=== PATIENT | female | born 1990 | race Caucasian/White ===

== ENCOUNTER → 2018-10-01 | Outpatient (CLI) | END | disposition home or self-care (01) ==

== ENCOUNTER → 2018-10-11 | Outpatient (CLI) | END | disposition home or self-care (01) ==

== ENCOUNTER 2019-02-16 10:24 | Inpatient (IN) | payer OTHER ==
[~2019-02-16] VITALS: Ht 170.2 cm; Wt 131.0 kg
[~2019-02-16 10:24] MED LIST: CEPH500C PO; FLUT1BLS INH; MONT10TA24 PO; SULF-182 PO
[2019-02-16 11:19] VITALS: BP 131/60; PULSE 121; RESP 18
--- NOTE | 2019-02-16 12:49 | HP ---
Date/Time of Note Date/Time of Note DATE: 02/16/19 TIME: 12:47 Assessment/Plan VTE Prophylaxis Pharmacological prophylaxis: LMWH Lines/Catheters IV Catheter Type (from Nrs): Peripheral IV Urinary Cath still in place: No Assessment/Plan Hospital Course 1. Acute respiratory distress secondary to pneumonia and/or asthma exacerbation Chest x-ray at outside hospital showed a right-sided pneumonia IV antibiotics with Rocephin and azithromycin Continue home Breo Albuterol as needed 2. Morbid obesity Lifestyle changes to be advised 3. Asthma Meds as above Prophylaxis: Lovenox HPI/ROS Admit Date/Time Admit Date/Time Feb 16, 2019 at 10:40 Hx of Present Illness Patient is a 28-year-old female with history of asthma, morbid obesity and lower extremity cellulitis. Patient presents to an outside hospital with reports of several weeks of shortness of breath as well as loss of voice. Chest x-ray at outside facility showed right-sided pneumonia, patient was transferred due to capitation. Patient has no other complaints at this time, patient does report coughing and shortness of breath. ROS Constitutional: no complaints, improved Eyes: no complaints ENT: no complaints Respiratory: cough, shortness of breath Cardiovascular: no complaints Gastrointestinal: no complaints Genitourinary: no complaints Musculoskeletal: no complaints Skin: no complaints Neurologic: no complaints Endocrine: no complaints Lymphatic: no complaints Psychological: no complaints, nl mood/affect Immunologic: no complaints PMH/Family/Social Past Medical History Asthma, obesity, lower extremely cellulitis Medications Current Medications IV Flush (NS 3 ml) 3 ml PER PROTOCOL IV ; Start 02/16/19 at 13:00; Status UNV Ondansetron HCl (Zofran Inj) 4 mg Q6H PRN IV NAUSEA/VOMITING; Start 02/16/19 at 13:00; Status UNV Acetaminophen (Tylenol Tab) 650 mg Q6H PRN PO .PAIN 1-3 OR TEMP; Start 02/16/19 at 13:00; Status UNV Acetaminophen/ Hydrocodone Bitart ([place] (5/325)) 1 tab Q6H PRN PO .MOD PAIN 4- 6; Start 02/16/19 at 13:00; Status UNV Morphine Sulfate (morphine) 2 mg Q4H PRN IV .SEVERE PAIN 7-10; Start 02/16/19 at 13:00; Status UNV Docusate Sodium (Colace) 100 mg Q12H PRN PO .CONSTIPATION; Start 02/16/19 at 13:00; Status UNV Zolpidem Tartrate (Ambien) 5 mg QHS PRN PO .INSOMNIA; Start 02/16/19 at 13:00; Status UNV Enoxaparin Sodium (Lovenox) 40 mg DAILY SC ; Start 02/17/19 at 09:00; Status UNV Ceftriaxone Sodium 50 ml @ 100 mls/hr Q24H IVPB ; Start 02/16/19 at 13:00; Status UNV Azithromycin 250 ml @ 250 mls/hr Q24H IVPB ; Start 02/16/19 at 13:00; Status U NV Fluticasone/ Vilanterol (Breo Ellipta 200-25 Mcg Inh) 1 inh DAILY INH ; Start 02/16/19 at 13:00; Status UNV Montelukast Sodium (Singulair) 10 mg HS PO ; Start 02/16/19 at 21:00; Status UNV Albuterol (Proventil 0.083% (Neb)) 2.5 mg Q4H RESP THERAPY PRN HHN SHORTNESS OF BREATH; Start 02/16/19 at 13:00; Status UNV Coded Allergies: latex (Verified Allergy, Intermediate, hives, 02/16/19) nut - unspecified (Verified Allergy, Mild, hives, 02/16/19) pollen extracts (Verified Allergy, Mild, wattery eyes, sneezing, coughing, 02/16/19) apple (Verified Allergy, Unknown, swelling, 02/16/19) apricot (Verified Allergy, Unknown, swelling, 02/16/19) peach (Verified Allergy, Unknown, chilles, 02/16/19) Past Surgical History Past Surgical Hx: no surgical history, noncontributory Family History Significant Family History: no pertinent family hx Social History Alcohol Use: rarely Smoking Status: Never smoker Drug Use: none Exam/Review of Systems Vital Signs Vitals Vital Signs Date Temp Pulse Resp B/P (MAP) Pulse Ox O2 O2 Flow FiO2 Time Delivery Rate 02/16/19 98.4 121 18 131/60 98 11:19 (83) Exam Constitutional: alert, oriented Respiratory: clear to auscultation Cardiovascular: regular rate and rhythm Gastrointestinal: soft; No distended Musculoskeletal: nl extremities to inspection BIENVENIDO CASTELLANOS Feb 16, 2019 12:49
[2019-02-16] MEDS ORDERED: morphine 2 MG INJ IV PRN (13:00)
[2019-02-16] MEDS: CEFTRIAXONE 1 GM/50 ML (PMX) 50 ML IVPB SCH (13:00)
[2019-02-16] MEDS ORDERED: ALBUTEROL 0.083% (NEB) 2.5 MG/3 ML AMP HHN PRN (13:00)
[2019-02-16] MEDS ORDERED: ONDANSETRON 4 MG INJ IV PRN (13:00)
[2019-02-16] MEDS ORDERED: HYDROCODONE/APAP (5/325) TAB PO PRN (13:00)
[2019-02-16] MEDS ORDERED: ZOLPIDEM 5 MG TAB PO PRN (13:00)
[2019-02-16] MEDS ORDERED: DOCUSATE SODIUM 100 MG CAP PO PRN (13:00)
[2019-02-16] MEDS ORDERED: ACETAMINOPHEN 325 MG TAB PO PRN (13:00)
[2019-02-16] MEDS ORDERED: NACL 0.9% 3 ML SYG IV SCH (13:00)
[2019-02-16 13:52] VITALS: BP 102/65; PULSE 108; RESP 18
[2019-02-16] MEDS: AZITHROMYCIN 500MG/NS (PMX) 250 ML IVPB SCH (14:00)
[2019-02-16] MEDS: FLUTICASONE/VILANTEROL 200-25 INH DEVICE INH SCH (16:25)
[2019-02-16 19:11] VITALS: Ht 170.2 cm; Wt 131.0 kg
[2019-02-16 19:51] VITALS: BP 114/61; PULSE 98; RESP 19
[2019-02-16] MEDS ORDERED: MONTELUKAST 10 MG TAB PO SCH (21:00)
[2019-02-17 02:00] VITALS: BP 113/56; PULSE 85; RESP 19
[2019-02-17 08:34] VITALS: BP 126/76; PULSE 91; RESP 18
[2019-02-17] MEDS: FLUTICASONE/VILANTEROL 200-25 INH DEVICE INH SCH (08:36)
[2019-02-17] MEDS ORDERED: ENOXAPARIN 40 MG/0.4 ML SYG SC SCH (09:00)
[2019-02-17] MEDS: CEFTRIAXONE 1 GM/50 ML (PMX) 50 ML IVPB SCH (12:29)
[2019-02-17] MEDS: AZITHROMYCIN 500MG/NS (PMX) 250 ML IVPB SCH (13:24)
[2019-02-17 14:02] VITALS: BP 114/73; PULSE 90; RESP 18
[2019-02-17] MEDS ORDERED: AZIT500T2 PO (16:42)
[2019-02-17] MEDS ORDERED: PROM6.2515 PO (16:42)
--- NOTE | 2019-02-17 16:42 | PDOCDIS ---
Discharge Instructions CONDITION [id number] Patient Condition: Tetgo9d Good HOME CARE INSTRUCTIONS: [id number] Diet Instructions: Agzii2g Reduced Calorie ACTIVITY: [id number] Activity Restrictions: Ulzso2r No Restrictions FOLLOW UP/APPOINTMENTS Follow-up Plan FOLLOW UP WITH YOUR PRIMARY CARE PHYSICIAN IN 1-2 WEEKS BIENVENIDO CASTELLANOS Feb 17, 2019 16:42
--- NOTE | 2019-02-17 16:44 | DS ---
Date/Time of Note Date/Time of Note DATE: 02/17/19 TIME: 16:43 Discharge Summary Admission/Discharge Info Admit Date/Time Feb 16, 2019 at 10:40 Discharge Date/Time February 17, 2019 Discharge Diagnosis 1. Acute respiratory distress secondary to pneumonia and/or asthma exacerbation-resolved Chest x-ray at outside hospital showed a right-sided pneumonia Status post IV antibiotics with Rocephin and azithromycin DC with Z-Benedicto and Phenergan with codeine Continue home Breo 2. Morbid obesity Lifestyle changes 3. Asthma Meds as above Patient Condition: Good Hospital Course Patient is a 28-year-old female with history of asthma, morbid obesity and lower extremity cellulitis. Patient presents to an outside hospital with reports of several weeks of shortness of breath as well as loss of voice. Chest x-ray at outside facility showed right-sided pneumonia, patient was transferred due to capitation. Patient received IV antibiotics and symptoms did improve, patient was stable for DC with oral antibiotics and cough syrup. On the day of discharge patient's vitals, labs and physical exam are stable. Home Meds Active Scripts Promethazine Hcl* (Promethazine Hcl* Syrup) 6.25 Mg/5 Ml Syrup, 6.25 MG PO Q6H PRN for COUGH, #1 BOTTLE Prov:BIENVENIDO CASTELLANOS 02/17/19 Azithromycin* (Zithromax* Tri-Benedicto) 500 Mg Tablet, 500 MG PO DAILY, #1 PACKET Prov:BIENVENIDO CASTELLANOS 02/17/19 Montelukast Sodium* (Montelukast Sodium*) 10 Mg Tablet, 10 MG PO HS for 30 Days, #30 TAB 1 Refill For asthma Prov:OSCAR MOHAMUD MD 12/09/18 Fluticasone/Vilanterol (Breo Ellipta 200-25 Mcg INH) 1 Each Blst.w.dev, 1 INH INH DAILY for 30 Days, #1 INHALER 1 Refill For asthma Prov:OSCAR MOHAMUD MD 12/09/18 Discontinued Scripts Cephalexin* (Cephalexin*) 500 Mg Capsule, 500 MG PO Q6 for 7 Days, #30 CAP Prov:OSCAR MOHAMUD MD 12/09/18 Sulfamethoxazole/Trimethoprim (Sulfamethoxazole-Tmp Ds Tablet) 1 Each Tablet, 1 TAB PO BID for 7 Days, #14 TAB Prov:OSCAR MOHAMUD MD 12/09/18 Follow-up Plan FOLLOW UP WITH YOUR PRIMARY CARE PHYSICIAN IN 1-[address] Care Provider [facility] Time spent on discharge: > 30 minutes BIENVENIDO CASTELLANOS Feb 17, 2019 16:44
== END 2019-02-17 18:37 | disposition home or self-care (01) | DRG 194 ==
LOC: 2NE 10:40
PROVIDERS: ADMIT Internal Medicine; ATTEND Internal Medicine
DX: J18.9 Pneumonia, unspecified organism (principal); J45.901 Unspecified asthma with (acute) exacerbation; Z68.42 Body mass index [BMI] 45.0-49.9, adult; E66.01 Morbid (severe) obesity due to excess calories; R06.03 Acute respiratory distress
CPT/HCPCS: 80048; 83036; 83735; 84100; 85025; J0456; J0696; J1650

== ENCOUNTER 2019-03-28 13:28 | Day surgery (SDC) | payer OTHER ==
[2019-03-27 16:57] VITALS: BMI 46.6
[~2019-03-28] VITALS: Ht 167.6 cm; Wt 129.9 kg
[2019-03-28] VITALS (14 sets, daily range): BP systolic 117–139; BP diastolic 58–77; PULSE 82–104; RESP 14–21; Ht 167.6 cm; Wt 129.9 kg
[~2019-03-28 13:28] MED LIST changes: +AZIT500T2 PO; -CEPH500C PO; +PROM6.2515 PO; -SULF-182 PO
[2019-03-28] MEDS ORDERED: LACTATED RINGER'S 1,000 ML (ENTER RATE) IV SCH (13:30)
[2019-03-28] MEDS ORDERED: CEFAZOLIN 2 GM/50 ML (PMX) 50 ML IVPB ONE (13:30)
--- NOTE | 2019-03-28 14:24 | HPN ---
Date/Time of Note Date/Time of Note DATE: 03/28/19 TIME: 14:24 Interval H&P Admission Note Pt. seen H&P reviewed: No system changes JUAN JOSE GIBSON March 28, 2019 14:24
[2019-03-28] MEDS ORDERED: FENTAnyl 50 MCG/ML VIAL ONE ×2 (14:59→15:36)
[2019-03-28] MEDS ORDERED: MIDAZOLAM 1 MG/ML 2 ML INJ ONE (14:59)
[2019-03-28] MEDS ORDERED: PROPOFOL 20 ML ONE ×2 (14:59→15:34)
[2019-03-28] MEDS ORDERED: BUPIVACAINE 0.5% (SDV) 30 ML INJ ONE (15:09)
--- NOTE | 2019-03-28 15:20 | PREAC ---
Date/Time of Note Date/Time of Note DATE: 03/28/19 TIME: 15:15 Anesthesia Eval and Record Evaluation Time Pre-Procedure Interview DATE: 03/28/19 TIME: 15:15 Age 28 Sex female NPO: 8 hrs Preoperative diagnosis Right Carpal Tunnel Syndrome Planned procedure Right Carpal Tunnel Release Past Medical History Past Medical History: Includes Endo: Other (Hypoglycemia) Pulm: Sleep Apnea, Asthma GI: Obesity Surgery & Anesthesia Issues No known issue Meds Anticoagulation: No Beta Eusebio within 24 hr: No Reason Beta Eusebio not given: Pt. not on B-Eusebio Active Scripts Promethazine Hcl* (Promethazine Hcl* Syrup) 6.25 Mg/5 Ml Syrup, 6.25 MG PO Q6H PRN for COUGH, #1 BOTTLE Prov:BIENVENIDO CASTELLANOS 02/17/19 Azithromycin* (Zithromax* Tri-Benedicto) 500 Mg Tablet, 500 MG PO DAILY, #1 PACKET Prov:BIENVENIDO CASTELLANOS 02/17/19 Montelukast Sodium* (Montelukast Sodium*) 10 Mg Tablet, 10 MG PO HS for 30 Days, #30 TAB 1 Refill For asthma Prov:OSCAR MOHAMUD MD 12/09/18 Fluticasone/Vilanterol (Breo Ellipta 200-25 Mcg INH) 1 Each Blst.w.dev, 1 INH INH DAILY for 30 Days, #1 INHALER 1 Refill For asthma Prov:OSCAR MOHAMUD MD 12/09/18 Current Medications Lactated Ringer's 1,000 ml @ 0 mls/hr Q0M IV ; Start 03/28/19 at 13:30 Meds reviewed: Yes Allergies Coded Allergies: latex (Verified Allergy, Intermediate, hives, 03/27/19) nut - unspecified (Verified Allergy, Mild, hives, 03/27/19) pollen extracts (Verified Allergy, Mild, wattery eyes, sneezing, coughing, 03/27/19) apple (Verified Allergy, Unknown, swelling, 03/27/19) apricot (Verified Allergy, Unknown, swelling, 03/27/19) peach (Verified Allergy, Unknown, chilles, 03/27/19) Allergies Reviewed: Yes Labs/Studies Labs Reviewed: Reviewed by anesthesiologist test: Negative Studies: ECG (n/a), CXR (n/a) Pre-procedure Exam Airway: Adequate mouth opening, Adequate thyromental dist Mallampati: Mallampati II Teeth: Normal Lung: Normal Heart: Normal ASA Physical Status ASA physical status: 2 Emergency: None Planned Anesthetic General/MAC: LMA Planned Pain Management Parenteral pain med Pre-operative Attestations Prior to commencing anesthesia and surgery, the patient was re-evaluated, there was verification of: *The patient's identity *The results of appropriate recent lab work and preoperative vital signs *The above evaluation not changing prior to induction *Anesthetic plan, risk benefits, alternative and complications discussed with patient/family; questions answered; patient/family understands, accepts and wishes to proceed. BO UPTON MD March 28, 2019 15:20
[2019-03-28] MEDS ORDERED: EPHEDrine 25 MG/5 ML SYG IV PRN (15:30)
[2019-03-28] MEDS ORDERED: ALBUTEROL 0.083% (NEB) 2.5 MG/3 ML AMP HHN PRN (15:30)
[2019-03-28] MEDS ORDERED: HYDROmorphONE 1 MG/5 ML IV SYRINGE IV PRN ×3 (15:30)
[2019-03-28] MEDS ORDERED: ONDANSETRON 4 MG INJ IV PRN (15:30)
[2019-03-28] MEDS ORDERED: OXYCODONE/ACETAMINOPHEN (5/325) TAB PO PRN ×2 (15:30)
[2019-03-28] MEDS ORDERED: METOCLOPRAMIDE 10 MG INJ IV PRN (15:30)
[2019-03-28] MEDS ORDERED: CEFAZOLIN 1 GM INJ ONE (15:34)
[2019-03-28] MEDS ORDERED: ONDANSETRON 4 MG INJ ONE (15:42)
[2019-03-28] MEDS ORDERED: KETOROLAC 30 MG INJ ONE (15:42)
[2019-03-28] MEDS ORDERED: DEXAMETHASONE 4 MG/ML 5 ML INJ ONE (15:42)
[2019-03-28] MEDS ORDERED: METOCLOPRAMIDE 10 MG INJ ONE (15:42)
--- NOTE | 2019-03-28 15:57 | PAC ---
Date/Time of Note Date/Time of Note DATE: 03/28/19 TIME: 15:56 Post-Anesthesia Notes Post-Anesthesia Note Last documented vital signs T: 98.9 Activity: WNL Respiratory function: WNL Cardiovascular function: WNL Mental status: Baseline Pain reasonably controlled: Yes Hydration appropriate: Yes Nausea/Vomiting absent: Yes BO UPTON MD March 28, 2019 15:57
--- NOTE | 2019-03-28 15:58 | OPPN ---
Date/Time of Note Date/Time of Note DATE: 03/28/19 TIME: 15:57 Operative Report Preoperative Diagnosis Right carpal tunnel syndrome Postoperative Diagnosis Right carpal tunnel syndrome Operation/Procedure Performed Right carpal tunnel release Surgeon see signature line [employer] assistant none Anesthesia: general Estimated blood loss: 0 - 10 ml's Transfusion Required none Specimen none Grafts/Implants none Complications none JUAN JOSE GIBSON March 28, 2019 15:58
--- NOTE | 2019-03-28 19:02 | OPR ---
DATE OF OPERATION: 03/28/2019 SURGEON: Juan Jose Alegre MD. ANESTHESIA: General plus local. PREOPERATIVE DIAGNOSIS: Right carpal tunnel syndrome. POSTOPERATIVE DIAGNOSIS: Right carpal tunnel syndrome. PROCEDURE: Right carpal tunnel release, open. OPERATIVE FINDINGS: Compression of median nerve at the carpal tunnel. INDICATION FOR PROCEDURE: A 28-year-old female with longstanding right carpal tunnel symptoms, who f lucia conservative measures, elected to proceed with surgical intervention, understanding risks and b enefits. DESCRIPTION OF PROCEDURE: The patient was seen in the preoperative area and all further questions we re answered. Again, she gave informed consent, understanding the risks and benefits. She was taken to operative suite and placed in supine position. She was placed under general anesthesia and Ancef 2 grams IV given. Tourniquet placed in the right upper extremity and right upper extremity was prepp ed with ChloraPrep stick and draped in usual sterile fashion. Esmarch bandage used to exsanguinate t he extremity and tourniquet inflated to 250 mmHg. A 2 cm incision at the base of the palm was utiliz ed with sharp dissection carried down through skin and subcutaneous tissue. The palmar aponeurosis w as incised along its ulnar border and retractors were deepened. The transverse carpal ligament was d ivided along its ulnar border approximately 3 mm radial to the hook of the hamate. Retractor was brian prabhakar proximally and distally, and the proximal and distal extents of transverse carpal ligament were d ivided under direct visualization. The wound was copiously irrigated. Skin closed with 5-0 nylon. Xeroform placed over the wound followed by sterile gauze, Webril, and bias dressing. Tourniquet defl ated after 5 minutes, and the patient was awakened from anesthesia. She was taken to the postoperati ve suite in stable condition, tolerated the procedure well without complication. SPECIMENS: None. ESTIMATED BLOOD LOSS: 5 mL. COUNTS: Sponge, instrument and needle counts correct. TOURNIQUET TIME: 5 minutes. CONDITION ON DISCHARGE: Stable. The patient was given a nonrefillable 5-day prescription for pain medication for surgery today. Dictated By: JUAN JOSE GAMBINO/NICOLE Conf#: [id number] DID#: [id number]
== END 2019-03-28 17:40 | disposition home or self-care (01) ==
LOC: SDS 13:28
PROVIDERS: ATTEND Orthopaedic Surgery Hand Surgery
DX: G56.01 Carpal tunnel syndrome, right upper limb (principal); E03.9 Hypothyroidism, unspecified; J45.909 Unspecified asthma, uncomplicated; E78.1 Pure hyperglyceridemia
CPT/HCPCS: 64721; 82962; J0690; J1100; J1170; J1885; J2250; J2405; J2765; J3010; Z7512; Z7610